=== PATIENT | male | born 1960 | race Caucasian/White ===

== ENCOUNTER 2017-11-19 10:58 | Day surgery (SDC) | payer OTHER ==
[~2017-11-19 10:58] MED LIST: ROCURONIUM 50 MG INJ
[2017-11-19] MEDS ORDERED: LACTATED RINGER'S 1,000 ML IV* (12:00)
[2017-11-19] MEDS ORDERED: CEFAZOLIN 2 GM/50 ML (PMX) 50 ML IVPB (12:00)
[2017-11-19 12:10] LABS: ADD MAN DIFF? NO
[2017-11-19 12:11] LABS: WHITE BLOOD COUNT 7.3 10^3/ul (4.8-10.8)
[2017-11-19 12:11] LABS: BASOPHIL # 0.1 10^3/ul (0.0-0.1); BASOPHILS % 0.7 % (0.0-2.0); EOSINOPHILS # 0.2 10^3/ul (0.0-0.5); EOSINOPHILS % 2.5 % (0.0-7.0); HEMATOCRIT 45.6 % (42.0-52.0); HEMOGLOBIN 15.8 g/dl (14.0-18.0); LYMPHOCYTES # 2.9 10^3/ul (0.8-2.9); LYMPHOCYTES % 39.3 % (15.0-51.0); MEAN CORPUSCULAR HEMOGLOBIN 30.3 pg (29.0-33.0); MEAN CORPUSCULAR HGB CONC 34.6 g/dl (32.0-37.0); MEAN CORPUSCULAR VOLUME 87.5 fl (82.0-101.0); MEAN PLATELET VOLUME 11.3 fl (7.4-10.4); MONOCYTE # 0.5 10^3/ul (0.3-0.9); MONOCYTES % 7.2 % (0.0-11.0); NEUTROPHIL # 3.6 10^3/ul (1.6-7.5); PLATELET COUNT 216 10^3/UL (140-415); RED BLOOD COUNT 5.21 10^6/ul (4.70-6.10); RED CELL DISTRIBUTION WIDTH 12.8 % (11.5-14.5)
[2017-11-19 12:32] LABS: ANION GAP 15 (8-16); CARBON DIOXIDE 27 mmol/L (21-31); CHLORIDE 105 mmol/L (97-110); GLUCOSE 90 mg/dl (70-220)
[2017-11-19 12:34] LABS: BLOOD UREA NITROGEN 16 mg/dl (7-20); CALCIUM 9.1 mg/dl (8.4-10.2); CREATININE 0.87 mg/dl (0.61-1.24); POTASSIUM 4.1 mmol/L (3.5-5.1); SODIUM 143 mmol/L (135-144)
[2017-11-19 12:43] LABS: INR 0.93; PROTIME 12.6 Sec (11.9-14.9)
[2017-11-19] MEDS ORDERED: LIDOCAINE 2% (SDV) 5 ML INJ (12:56)
[2017-11-19] MEDS ORDERED: PROPOFOL 20 ML ×2 (12:57→13:37)
[2017-11-19] MEDS ORDERED: ONDANSETRON 4 MG INJ ×2 (12:58→15:34)
[2017-11-19] MEDS ORDERED: CEFAZOLIN 1 GM INJ (13:37)
[2017-11-19] MEDS ORDERED: MIDAZOLAM 1 MG/ML 2 ML INJ (13:37)
[2017-11-19] MEDS ORDERED: ROCURONIUM 50 MG INJ (13:37)
[2017-11-19] MEDS ORDERED: ROPIVACAINE 0.5 % 30 ML VIAL (13:38)
[2017-11-19] MEDS ORDERED: BUPIVACAINE 0.25% (MPF) 30 ML INJ (14:48)
[2017-11-19] MEDS: POLYMYXIN/BACITRACIN 1L IRRIG (15:33)
[2017-11-19] MEDS ORDERED: DEXAMETHASONE 4 MG/ML 1 ML INJ (15:34)
[2017-11-19] MEDS ORDERED: METOCLOPRAMIDE 10 MG INJ (15:34)
[2017-11-19] MEDS ORDERED: ACETAMINOPHEN 1000MG/100ML IV 100 ML ×2 (15:34→15:36)
[2017-11-19] MEDS ORDERED: KETOROLAC 30 MG INJ (15:35)
[2017-11-19] MEDS ORDERED: SUGAMMADEX SODIUM 200 MG/2 ML VIAL IV (16:33)
[2017-11-19] MEDS ORDERED: GLYCOPYRROLATE 0.4 MG INJ (16:34)
[2017-11-19] MEDS ORDERED: FENTAnyl 50 MCG/ML VIAL (16:56)
[2017-11-19] MEDS: FENTAnyl 50 MCG/ML VIAL IV ×2 (17:18→17:24)
[2017-11-19] MEDS: MEPERIDINE 25 MG INJ IV (17:19)
[2017-11-19] MEDS: ONDANSETRON 4 MG INJ IV (17:19)
[2017-11-19] MEDS: OXYCODONE/ACETAMINOPHEN (5/325) TAB PO (17:28)
[2017-11-19] MEDS ORDERED: LABETALOL HCL 20MG INJ IV (17:30)
[2017-11-19] MEDS ORDERED: OXYCODONE/ACETAMINOPHEN (5/325) TAB PO (17:30)
[2017-11-19] MEDS ORDERED: FENTAnyl 50 MCG/ML VIAL IV ×2 (17:30)
[2017-11-19] MEDS ORDERED: HYDROmorphONE (0.2 MG/ML) 10ML SYG IV ×3 (17:30)
[2017-11-19] MEDS ORDERED: METOCLOPRAMIDE 10 MG INJ IV (17:30)
[2017-11-19] MEDS ORDERED: EPHEDrine SULFATE 50 MG/5 ML SYG IV (17:30)
[2017-11-19] MEDS ORDERED: DIPHENHYDRAMINE 50 MG INJ IV (17:30)
== END 2017-11-19 18:38 | disposition home or self-care (01) ==
LOC: SDS 10:58
DX: T84.84XA Pain due to internal orthopedic prosthetic devices, implants and grafts, initial encounter (principal); Y79.8 Miscellaneous orthopedic devices associated with adverse incidents, not elsewhere classified
CPT/HCPCS: 20680; 73080-RT; 80048; 85025; 85610; 85730; 87070; 87102; 87116; 88300; 93005